=== PATIENT | male | born 1950 | race Caucasian/White ===

== ENCOUNTER → 2019-09-14 11:18 | Outpatient (BNVA) | payer MEDICARE, OTHER, SELFPAY | PROVIDERS: Family Provider Family Medicine; PCP Family Medicine; Visit Provider Urology | DX: N13.8 Other obstructive and reflux uropathy (principal); N40.1 Benign prostatic hyperplasia with lower urinary tract symptoms | CPT/HCPCS: 81001 ==

== ENCOUNTER 2019-11-09 07:42 | Day surgery (SDC) | payer MEDICARE, OTHER, SELFPAY ==
[2019-11-05 09:27] VITALS: BMI 25.1
[2019-11-09 07:51] VITALS: BP 178/92; PULSE 73; RESP 18; TEMP 36.4; O2SAT 99
[2019-11-09] MEDS: sodium chloride 0.9% 1,000 ML 30 ML IV (08:09)
--- NOTE | 2019-11-09 09:26 | ANES.PREANE2 ---
Pre-Anesthetic Assessment Pre-Anesthetic Assessment: Height/Weight: Height 1.78 m Weight 79.379 kg Temp Pulse Resp BP Pulse Ox 97.6 F 73 18 178/92 99 11/09/19 07:51 11/09/19 07:51 11/09/19 07:51 11/09/19 07:51 11/09/19 07:51 Proposed Procedure: Operation Date: 11/09/19 09:05 Proposed Procedures p [id number](Not Applicable) - Jame Conn MD Last intake: Intake Last Liquid Date 11/08/19 Last Liquid Time 20:30 Last Solid Date 11/07/19 Social: Social History: No alcohol and No tobacco Exam: Pre-Anes Outpt Exam: alert, oriented x 3, clear to auscultation bilaterally and regular rate & rhythm Airway: Submandibular: WNL Cervical ROM: WNL MP: 1 Dentition: Other (teeth ok) History/ROS: No significant history except as noted Pulmonary: Pulmonary: None reported CV/HEM: CV/HEM: None reported : : None reported Hepatic: Hepatic: None reported GI: GI: GERD (occ) Metabolic: Metabolic: None reported Musc/skel: Musc/skel: None reported Neuropsych: Neuropsych: None reported Anesthetic Plan: ASA status: 2 Anesthesia: Anesthesia Evaluation and MAC Risk of > 500 ml blood loss (7ml/kg in children): No Meds/Allergies Current Medications: Current Medications Generic Name Dose Route Start Last Admin Trade Name Freq PRN Reason Stop Dose Admin Sodium Chloride 1,000 mls @ 30 ml s/hr 11/09/19 08:00 11/09/19 08:09 Sodium Chloride 0.9% IV 11/10/19 07:59 30 mls/hr .Q24H PEREZ Administration PFSH Anesthesia PFSH: Social History Smoking and tobacco status: former smoker Alcohol intake: unknown Adopted: No Caregiver/support person: No Lives independently: No Household members: spouse Marital status: History of recent travel: No Data Anesthesia Cardiac Studies: No Data to Display
--- NOTE | 2019-11-09 11:15 | P.HP_ITS ---
Same Day Surgery H&P Indication for Procedure/HPI DATE OF PROCEDURE: November 09, 2019 CHIEF COMPLAINT/INDICATIONFOR SURGICAL PROCEDURE: constipation PREOP DIAGNOSIS: constipation PLANNED PROCEDRUE: Operation Date: 11/09/19 09:05 Proposed Procedures p [id number](Not Applicable) - Jame Conn MD Medications/Allergies* Home Medications Medication Instructions Recorded Confirmed Type Magnesium 250 mg PO DAILY 09/14/19 11/09/19 History ascorbic acid (vitamin C) 500 mg 1,000 mg PO BID 09/14/19 11/09/19 History capsule aspirin 81 mg tablet,delayed 81 mg PO DAILY 09/14/19 11/09/19 History release azelastine 0.15 % (205.5 mcg) 1 spray INTRANASAL BID 09/14/19 11/09/19 History nasal spray cinnamon bark 500 mg capsule 500 mg PO DAILY 09/14/19 11/09/19 History coenzyme Q10 75 mg capsule 100 mg PO DAILY 09/14/19 11/09/19 History garlic 1,000 mg capsule 1,000 mg PO DAILY 09/14/19 11/09/19 History glucosamine sulfate 500 mg tablet 500 mg PO DAILY tab 09/14/19 11/09/19 History hawthorn 500 mg capsule 565 mg PO DAILY 09/14/19 11/09/19 History lactobacillus combination no.8 3 30,000,000 mmu cells PO DAILY 09/14/19 11/09/19 History billion cell capsule levocetirizine 5 mg tablet 5 mg PO DAILY 09/14/19 11/09/19 History jjmyxtsn-bwj-baqgz acid 300 1 tab PO DAILY 09/14/19 11/09/19 History mcg-lycopene 600 mcg-lutein 300 mcg tablet [id number] comb 40 1 cap PO DAILY 09/14/19 11/09/19 History mg-17 mcg-10 mg-63 mg-33mg capsule omega-3 fatty acids 1,000 mg 500 mg PO DAILY 09/14/19 11/09/19 History capsule resveratrol 100 mg capsule 500 mg PO DAILY 09/14/19 11/09/19 History docusate sodium [Colace] 100 mg PO BID 11/05/19 11/09/19 History potassium gluconate 595 mg PO DAILY 11/05/19 11/09/19 History selenium 200 mcg PO DAILY 11/05/19 11/09/19 History sennosides [Senokot] 8.6 mg PO DAILY 11/05/19 11/09/19 History zinc 50 mg PO DAILY 11/05/19 11/09/19 History Allergies/Adverse Reactions Allergy/AdvReac Type Severity Reaction Status Date / Time Penicillins Allergy Rash Verified 11/05/19 08:49 Current Medications: Generic Name Dose Route Start Last Admin Trade Name Freq PRN Reason Stop Dose Admin Sodium Chloride 1,000 mls @ 30 mls/hr 11/09/19 08:00 11/09/19 08:09 Sodium Chloride 0.9% IV 11/10/19 07:59 30 mls/hr .Q24H PEREZ Administration Pertinent History/Comorbid Conditions* Medical History (Updated 09/21/19 @ 18:07 by Jame Conn MD) BPH with obstruction/lower urinary tract symptoms Constipation Family History (Updated 09/21/19 @ 14:23 by Thalia Victoria RN) Father, AT AGE 57 ME Mother, AT AGE 76 CVA AFTER BYPASS SURGERY Diabetes Mother CAD (coronary artery disease) Mother Father Cancer Mother Hypertension Mother Denies family history of Anesthesia complication Bleeding disorder Social History Smoking and tobacco status: former smoker Alcohol intake: unknown Adopted: No Caregiver/support person: No Lives independently: No Household members: spouse Marital status: History of recent travel: No Pertinent Exam Findings alert, oriented x 3 and regular rate & rhythm Recommendations Surgery/Procedure today Coding Level of Care Code Acute Surveillance Inspector for Paulo Madrigal
[2019-11-09 11:49] VITALS: BP 119/73; PULSE 85; RESP 18; TEMP 36.8; O2SAT 98
[2019-11-09 12:05] VITALS: BP 103/76; PULSE 77; RESP 18; O2SAT 97
[2019-11-09 12:20] VITALS: BP 133/70; PULSE 78; RESP 18; O2SAT 98
== END 2019-11-09 12:30 | disposition home or self-care (01) ==
PROVIDERS: PCP Family Medicine; Visit Provider Surgery
PROC: 0DJD8ZZ Inspection of Lower Intestinal Tract, Via Natural or Artificial Opening Endoscopic (ICD-10-PCS; CPT 45378; principal; 2019-11-09 09:00)
DX: K59.00 Constipation, unspecified (principal); K57.30 Diverticulosis of large intestine without perforation or abscess without bleeding; K64.8 Other hemorrhoids; K21.9 Gastro-esophageal reflux disease without esophagitis; Z87.891 Personal history of nicotine dependence
CPT/HCPCS: 45378; 12345; J2704; J7030